=== PATIENT | male | born 1995 | race Caucasian/White ===

== ENCOUNTER 2021-09-23 21:09 | Emergency (ER) | payer SELFPAY ==
[~2021-09-23] VITALS: Ht 182.9 cm; Wt 72.7 kg
[2021-09-23 21:35] VITALS: BP 120/66
--- NOTE | 2021-09-23 21:46 | PHYS DOC ---
Past History Past Surgical History: No Surgical History (MARSHALL YOST APRN) Alcohol Use: None (MARSHALL YOST APRN) Adult General Chief Complaint Chief Complaint: MEDICATION REFILL HPI HPI Patient is a 26-year-old male patient presenting to the ED today requesting a refill of clonazepam. He states he takes it for anxiety, seizures and depression. He states he recently moved here from [place] and does not have a PCP to follow-up with. (MARSHALL YOST APRN) Review of Systems Review of Systems Constitutional: Denies fever or chills [] Musculoskeletal: Denies back pain or joint pain [] Integument: Denies rash or skin lesions [] Neurologic: Denies headache, focal weakness or sensory changes [] Psych: Requesting refill for clonazepam All other systems were reviewed and found to be within normal limits, except as documented in this note. (MARSHALL YOST APRN) Allergies Allergies Allergies Coded Allergies Type Severity Reaction Last Updated Verified No Known Drug Allergies 09/23/21 No (MARSHALL YOST APRN) Physical Exam Physical Exam Constitutional: Well developed, well nourished, no acute distress, non-toxic appearance. [] Skin: Warm, dry, no erythema, no rash. [] Back: No tenderness, no CVA tenderness. [] Extremities: No tenderness, no cyanosis, no clubbing, ROM intact, no edema. [] Neurologic: Alert and oriented X 3, normal motor function, normal sensory function, no focal deficits noted. [] Psychologic: Affect normal, judgement normal, mood normal. [] (MARSHALL YOST APRN) Current Patient Data Vital Signs Vital Signs Date Time Temp Pulse Resp B/P (MAP) Pulse Ox O2 Delivery O2 Flow Rate FiO2 09/23/21 21:35 97.5 95 18 120/66 (84) 99 Room Air (MARSHALL YOST [employer]) EKG EKG [] (MARSHALL YOST APRN) Radiology/Procedures Radiology/Procedures [] (MARSHALL YOST APRN) Heart Score C/O Chest Pain: N/A Risk Factors: Risk Factors: DM, Current or recent (<one month) smoker, HTN, HLP, family history of CAD, obesity. Risk Scores: Risk Factors: DM, Current or recent (<one month) smoker, HTN, HLP, family history of CAD, obesity. (MARSHALL YOST APRN) Course & Med Decision Making Course & Med Decision Making Pertinent Labs and Imaging studies reviewed. (See chart for details) This is a 26-year-old male patient presented to the ED today requesting a refill for clonazepam which he takes for anxiety, seizures and depression. Informed patient we do not refill this type of medicines. He needs to establish care with a primary care doctor in follow-up (MARSHALL YOST APRN) Course & Med Decision Making Did not see or evaluate patient. Did not discuss patient with [employer]ITION STOREKEEPER. Agree with AMMUNITION STOREKEEPER's work-up and disposition per note (TIMMY CAPELLAN MD) Dragon Disclaimer Dragon Disclaimer This electronic medical record was generated, in whole or in part, using a voice recognition dictation system. (MARSHALL YOST APRN) Departure Departure: Impression: Primary Impression: Medication refill Disposition: HOME / SELF CARE / HOMELESS Condition: STABLE Referrals: PCP,NO (PCP) follow up in one week Patient Instructions: Anxiety and Panic Attacks, [id number] Additional Instructions: You were evaluated in the emergency room, we recommend you establish care with one of the local primary care doctors or clinics and follow-up for medication refills MARSHALL YOST APRN Sep 23, 2021 21:46 TIMMY CAPELLAN MD Sep 23, 2021 23:12
== END 2021-09-23 21:50 | disposition home or self-care (01) ==
LOC: ER 21:09
DX: F41.9 Anxiety disorder, unspecified (principal); F32.9 Major depressive disorder, single episode, unspecified; Z76.0 Encounter for issue of repeat prescription
CPT/HCPCS: 99281-25